=== PATIENT | male | born 2000 | race Caucasian/White ===

== ENCOUNTER 2024-06-19 10:03 | Emergency (ER) | payer OTHER, SELFPAY ==
[~2024-06-19] VITALS: Ht 182.9 cm; Wt 109.8 kg
[2024-06-19 10:04] VITALS: BP 132/72; TEMP 98; O2SAT 97
[2024-06-19] MEDS ORDERED: CEPH500C (10:21)
[2024-06-19] MEDS ORDERED: BACTDSTA (10:21)
== END 2024-06-19 11:51 | disposition home or self-care (01) ==
LOC: M ED 10:03
DX: L03.116 Cellulitis of left lower limb (principal); Z86.14 Personal history of Methicillin resistant Staphylococcus aureus infection